=== PATIENT | female | born 1940 | race Caucasian/White ===

== ENCOUNTER 2021-01-30 09:43 | Emergency (ER) | payer MEDICARE, OTHER ==
[~2021-01-30] VITALS: Ht 162.6 cm; Wt 53.1 kg
== END 2021-01-30 10:19 | disposition home or self-care (01) ==
LOC: ER1 09:43
DX: U07.1 COVID-19 (principal); I10 Essential (primary) hypertension; F17.210 Nicotine dependence, cigarettes, uncomplicated
CPT/HCPCS: 71045; 99283; U0003

== ENCOUNTER 2021-02-01 10:57 | Emergency (ER) | payer MEDICARE, OTHER ==
[~2021-02-01] VITALS: Ht 162.6 cm; Wt 53.1 kg
== END 2021-02-01 13:42 | disposition home or self-care (01) ==
LOC: ER1 10:57
DX: U07.1 COVID-19 (principal); Z23 Encounter for immunization; I10 Essential (primary) hypertension; M06.9 Rheumatoid arthritis, unspecified; F17.200 Nicotine dependence, unspecified, uncomplicated
CPT/HCPCS: 99283; J0692; M0243

== ENCOUNTER → 2021-02-09 | Outpatient (CLI) | payer MEDICARE, OTHER ==
[~2021-02-09] VITALS: Ht 162.6 cm; Wt 53.1 kg
== END ==
LOC: OPSV 10:36
DX: M06.9 Rheumatoid arthritis, unspecified (principal)
CPT/HCPCS: 96365; 96375; J1602; J2920

== ENCOUNTER → 2021-03-09 | Outpatient (CLI) | payer MEDICARE, OTHER ==
[~2021-03-09] VITALS: Ht 162.6 cm; Wt 53.1 kg
== END ==
LOC: OPSV 13:00
DX: M06.9 Rheumatoid arthritis, unspecified (principal)
CPT/HCPCS: 96365; 96375; J1602; J2920

== ENCOUNTER 2021-09-12 18:30 | Emergency (ER) | payer MEDICARE, OTHER ==
[2021-09-12 19:39] LABS: HEMOGLOBIN 13.3 gm/dl (12.3-15.3); RED BLOOD COUNT 3.94 M/UL (4.00-5.10); WHITE BLOOD COUNT 14.5 K/UL (4.5-11.0)
[2021-09-12 20:01] LABS: BUN/CREATININE RATIO 24 (0-10)
[2021-09-12] MEDS ORDERED: COLACE100 MG PO (22:43)
[2021-09-12] MEDS ORDERED: MIRALAX17 GM PO (22:43)
[2021-09-12] MEDS ORDERED: GLYCERIN1 EACH PR (22:43)
== END 2021-09-12 23:05 | disposition home or self-care (01) ==
LOC: ER1 18:30
PROVIDERS: Student in an Organized Health Care Education/Training Program
DX: K59.00 Constipation, unspecified (principal); E86.0 Dehydration; K21.9 Gastro-esophageal reflux disease without esophagitis; E78.5 Hyperlipidemia, unspecified; I10 Essential (primary) hypertension
CPT/HCPCS: 80053; 81001; 83605; 83690; 85025; 99284; J7030; Q9967